=== PATIENT | male | born 1995 | race African-American/Black ===

== ENCOUNTER 2017-03-12 14:06 | Emergency (ER) | payer BC ==
[~2017-03-12] VITALS: Ht 154.9 cm; Wt 56.5 kg
[2017-03-12 14:16] VITALS: Ht 154.9 cm; Wt 56.5 kg
[2017-03-12] MEDS ORDERED: KETOROLAC 30 MG INJ IM STA (15:09)
[2017-03-12] MEDS ORDERED: CLIN-73 PO (15:16)
[2017-03-12] MEDS ORDERED: IBUP-1542 PO (15:16)
--- NOTE | 2017-03-12 15:24 | ERD ---
ER Documentation Chief Complaint Date/Time DATE: 03/12/17 TIME: 15:22 Chief Complaint JAW PAIN AND SWELLING WITH HEADACHE X 2 DAYS HPI 21-year-old male comes in with left-sided jaw pain and swelling the lower molar tooth pain for 2 days. He has some facial swelling. Denies fevers, chills, trismus, voice changes, drooling. ROS All systems reviewed and are negative except as per history of present illness. Medications Home Meds Active Scripts Ibuprofen* (Motrin*) 600 Mg Tab, 600 MG PO Q6, #30 TAB Prov:LAUREN CANDELARIA PA-C 03/12/17 Clindamycin Hcl* (Clindamycin Hcl*) 300 Mg Capsule, 300 MG PO TID for 7 Days, CAP Prov:LAUREN CANDELARIA PA-C 03/12/17 Allergies Allergies: Coded Allergies: Iodine (Verified Allergy, 03/12/17) Penicillins (Verified Allergy, 03/12/17) Physical Exam Vitals Vital Signs Date Time Temp Pulse Resp B/P Pulse Ox O2 Delivery O2 Flow Rate FiO2 03/12/17 14:16 98.4 59 16 117/66 99 Physical Exam General: Well-developed, well-nourished. The patient appears in no acute distress. HEENT: Head is normocephalic, atraumatic. No scleral icterus. Neck: Supple. Nontender. Mild left-sided jaw swelling, tender over the left lower molar, there is evidence of a partially grown molar tooth. No trismus. Oropharynx is clear. There is no submandibular swelling. Lungs: Clear to auscultation. Normal air movement. Heart: Regular rate and rhythm. S1 and S2 are normal. No murmurs, gallops, or rubs. Abdomen: Nondistended. Extremities: No clubbing or cyanosis. Moving extremities x 4. No weakness. Neurologic: Alert and oriented 3. No focal deficits. Normal speech and gait. Skin: Normal turgor. No rash or lesions. Results 24 hrs Current Medications Medications (Trade) Dose Ordered Sig/Andria Route PRN Reason Start Time Stop Time Status Last Admin Dose Admin Ketorolac Tromethamine (Toradol) 30 mg ONCE STAT IM 03/12/17 15:09 03/12/17 15:10 DC Procedures/MDM 21-year-old male comes in with left-sided dental abscess, she has some mild facial swelling however no evidence of any Hai angina, retropharyngeal abscess, peritonsillar abscess, deep space infection. He was given Toradol in emergency department, will be discharged with pain medication, antibiotics, and was asked to recheck with a dentist tomorrow. Departure Diagnosis: Primary Impression: Dental abscess Condition: Good Patient Instructions: Dental Abscess Referrals: [facility] ([facility]) Additional Instructions: Follow-up with your dentist tomorrow. LAUREN CANDELARIA PA-C Mar 12, 2017 15:24
== END 2017-03-12 15:48 | disposition home or self-care (01) ==
LOC: FTE 14:06
DX: K04.7 Periapical abscess without sinus (principal)
CPT/HCPCS: 96372; 99284; J1885